=== PATIENT | male | born 1955 | race Caucasian/White ===

== ENCOUNTER 2017-01-25 20:56 | Emergency (ER) | payer OTHER ==
--- NOTE | ~2017-01-25 | CR72 ---
[facility] A Service of [facility] & [facility] RADIOLOGY TEXT RESULTS PATIENT: CAIO GORDON LOCATION: [facility] : 53 UNIT #: [id number] AGE: [address]: Jose Denise MD SEX: M ORDER DR: [id number] [facility] [address] [place], [place] [address] [id number] MR#: [id number] Acc #: [id number] NAME: CAIO GORDON : 1955 SEX: M STUDY DATE/TIME: 01/25/2017 19:59 UNIT: [facility] ROOM: STUDY DESCRIPTION: CR Chest Single View Portable Attending Physician: Jose Denise M.D. Ordering Physician: Kevin Hollingsworth M.D. Primary Care Physician: Bishop Verduzco M.D. MEDICAL IMAGING REPORT This report is preliminary unless electronic signature is present EXAM Portable chest, 01/25/2017 HISTORY Shortness of air, chest tightness onset today. History of valve repair. COMPARISON 09/15/2016 FINDINGS Portable view of the chest demonstrates pulmonary hyperinflation hyperlucency with coarse parenchymal markings suggesting underlying emphysema and fibrosis. Calcified granuloma right lung base. No acute airspace disease or consolidation. No effusions. Heart and mediastinum unremarkable except for postsurgical changes from previous valve repair. No pneumothorax. Dictated by... Sandi Ireland M.D. THIS IS AN ELECTRONICALLY VERIFIED REPORT Sandi Ireland M.D. at 01/26/2017 2:38 PM DAVID/darlene TD: 01/26/2017 01:30 JOB #: [id number] MEDICAL IMAGING REPORT Page 1 of 1 COPY
--- NOTE | ~2017-01-25 | EKG ---
PATIENT: CAIO GORDON UNIT #: [id number] Ventricular Rate: 123 BPM Atrial Rate: 123 BPM P-R Interval: 156 ms QRS Duration: 90 ms Q-T Interval: 322 ms QTC Calculation(Bezet): 460 ms P [place]: 72 degrees Calculated R [place]: 114 degrees Calculated T [place]: 61 degrees Diagnosis Line: Sinus tachycardia Diagnosis Line: Right axis deviation Diagnosis Line: Abnormal ECG Diagnosis Line: When compared with ECG of 05-APR-2016 05:43, Diagnosis Line: Sinus rhythm has replaced Atrial flutter Diagnosis Line: Vent. rate has increased BY 49 BPM Diagnosis Line: Questionable change in QRS axis Diagnosis Line: Nonspecific T wave abnormality no longer evident Diagnosis Line: in Anterolateral leads Diagnosis Line: Confirmed by JESSICA GARCIA MD ([id number]) on 01/29/2017 Diagnosis Line: 10:41:38 PM INTERPRETING MD: RADHA COELHO
--- NOTE | ~2017-01-25 | EKG ---
PATIENT: CAIO GORDON UNIT #: [id number] Ventricular Rate: 100 BPM Atrial Rate: 100 BPM P-R Interval: 162 ms QRS Duration: 102 ms Q-T Interval: 380 ms QTC Calculation(Bezet): 490 ms P [place]: 71 degrees Calculated R [place]: 89 degrees Calculated T [place]: 70 degrees Diagnosis Line: Normal sinus rhythm Diagnosis Line: Prolonged QT Diagnosis Line: Abnormal ECG Diagnosis Line: When compared with ECG of 25-JAN-2017 20:03, Diagnosis Line: (unconfirmed) Diagnosis Line: No significant change was found Diagnosis Line: Confirmed by JESSICA GARCIA MD ([id number]) on 01/29/2017 Diagnosis Line: 10:41:59 PM INTERPRETING MD: RADHA COELHO
[2017-01-25 20:18] LABS: POC - CKMB 4.2 ng/mL (0.0-7.9); POC - TROPONIN <0.05 ng/mL (<=0.05)
[2017-01-25 20:20] LABS: BASOPHIL% 0.1 % (0-2.5); HEMATOCRIT 47.9 % (38.0-50.0); HEMOGLOBIN 15.5 gm/dL (13.0-16.0); LYMPHOCYTE# 0.7 X10e3 (1.0-3.5); LYMPHOCYTE% 4.7 % (17.0-45.0); MEAN CELL VOLUME 92.8 FL (83-96); MEAN CORPUSCULAR HEMOGLOBIN 30.1 PG (28-34); MEAN CORPUSCULAR HGB CONC 32.4 g/dL (30-36); MEAN PLATELET VOLUME 9.6 FL (6.5-11.5); MONOCYTE# 0.8 X10e3 (0-1.0); MONOCYTE% 5.2 % (3.0-12.0); NEUTROPHIL# 13.4 X10e3 (1.5-7.1); PLATELET COUNT 113 X10e3 (140-420); RED BLOOD COUNT 5.16 X10e (3.90-5.60); RED CELL DISTRIBUTION WIDTH 15.8 % (11.0-15.5); WHITE BLOOD COUNT 14.9 X10e3 (4.0-10.5)
[2017-01-25 20:21] LABS: INFLUENZA A NEG (NEG); INFLUENZA B NEG (NEG)
[2017-01-25 20:21] LABS: DIFF IND NO
[~2017-01-25 20:56] MED LIST: ACETAMINOPHEN PO; AMIODARONE HCL400 MG PO; ASPIRIN81 M2 PO; BUMETANIDE1 MG PO; CAPOTEN12.5 MG PO; DIGOX0.125 MG PO; ELIQUIS5 MG PO; LORTAB 7.5-5001 TAB PO; LOVENOX SUBQ; NO MEDICATIONS; TOPROL XL 50 MG50 MG PO
[2017-01-25 20:57] LABS: ALBUMIN SERUM 4.9 g/dL (3.5-5.0); BILIRUBIN, DIRECT 1.3 mg/dL (0.0-0.2); BILIRUBIN,INDIRECT 2.5 mg/dL (0.0-0.9); BILIRUBIN,TOTAL 3.8 mg/dL (0.2-2.0); BUN/CREATININE RATIO 13.75; CALCIUM SERUM 9.3 mg/dL (8.4-10.2); CREATININE SERUM 0.8 mg/dL (0.6-1.4); GLOM FILT RATE Estimated 95.1 mL/min (>60); POTASSIUM 4.1 mmol/L (3.5-5.1); PROTEIN TOTAL SERUM 8.5 g/dL (6.0-8.3)
== END 2017-01-25 21:48 | disposition home or self-care (01) ==
LOC: CED 20:56
PROVIDERS: Emergency Medicine
DX: I45.81 Long QT syndrome (principal); Z91.14 Patient's other noncompliance with medication regimen; F17.200 Nicotine dependence, unspecified, uncomplicated
CPT/HCPCS: 36415; 71010; 80048; 80076; 82553; 84484; 85025; 87651; 87804; 93005; 99284; J3490

== ENCOUNTER 2017-06-18 23:42 | Inpatient (IN) | payer OTHER ==
[~2017-06-18] VITALS: Ht 180.3 cm; Wt 60.2 kg
--- NOTE | ~2017-06-18 | CO ---
Unit #: [id number] #: [id number] Patient: CAIO GORDON [id number] [address] [place], [place] [address] [id number] I MR#: [id number] NAME: CAIO GORDON ROOM: 471 Age: 62 Sex: M Admission Date: 06/19/2017 : 1955 Attending Physician: Nj Weinberg M.D. Primary Care Physician: Bishop Verduzco M.D. Consultation Date: 06/19/2017 CONSULTATION REPORT REASON FOR CONSULT Bleeding, on anticoagulation. HISTORY OF PRESENT ILLNESS The patient is a 62-year-old white male who is known to Dr. Rey with a history of having a cardiac cath in April 2016 with normal coronaries, a history of nonischemic cardiomyopathy with an EF of 16% in April of 2016 but repeat echo in June 2016 shows EF of 50%, hypertension, an OH in 2016 that is subjective, history of A-fib/flutter, now in sinus rhythm, daily alcohol abuse with one pint of vodka daily, anxiety and tobacco abuse, one pack per day smoker for 40 years. The patient came to the emergency room with complaints of rectal bleeding after a bowel movement around 10:45 p.m. last evening. 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 However, last night was more than he was used to. The patient denied any kind of dark tarry stools or brown emesis. He also denied any shortness of breath, palpitations, lightheadedness, chest pain, pressure or tightness, nausea, vomiting, fevers, chills. The patient had a cardiac cath in April 2016 that showed normal coronaries with an EF of 15% at that time. Patient was placed with a LifeVest and placed on appropriate medications with repeat JOSHUA in June 2016 showing an EF of 50%, mild concentric LVH and mild TR. Patient had LifeVest discontinued 05/26 of this year due to improved EF. Patient has been on Lopressor twice a day as well as Eliquis and aspirin at home. PAST MEDICAL HISTORY 1. Cardiac cath 04/05/16. Normal coronaries with an EF of 15%. 2. JOSHUA 04/2016 showed an EF of 16% with repeat JOSHUA in 06/2016 with an EF of 50%, mild concentric LVH, mild TR. 3. Hypertension. 4. Subjective OH in 2016. 5. History of A-fib/flutter, now in sinus rhythm. Patient was on amiodarone for awhile. However, that was stopped and patient has maintained sinus rhythm on beta kristine alone. 6. Daily alcohol abuse with one pint of vodka daily. 7. Anxiety. 8. Tobacco abuse, one pack per day smoker for 40 years. SURGICAL HISTORY Includes carpal tunnel surgery and left ankle surgery. SOCIAL HISTORY The patient is a pack per day smoker for the last 40 years. He also Unit #: [id number] #: [id number] Patient: CAIO GORDON drinks one pint of vodka daily. His last drink was last evening. Patient has sustained from alcohol in the past for a total of five years. He states that he did experience withdrawal symptoms at that time. FAMILY HISTORY Patient does not know all the details of his family history. However, he states he does have some family history of cardiac problems. ALLERGIES No known allergies. HOME MEDICATIONS 1. Tylenol 650 p.o. every six hours as needed for pain. 2. Eliquis 5 mg p.o. twice a day. 3. Captopril 12.5 mg p.o. three times a day. 4. Metoprolol tartrate 50 mg p.o. daily. 5. Aspirin 81 mg p.o. daily. 6. Chantix. 7. Bumex 1 mg p.o. daily. REVIEW OF SYSTEMS Ten point review of systems negative except for what is listed above in the HPI. PHYSICAL EXAMINATION GENERAL: This is a 62-year-old white male who is alert and oriented x3, in no apparent distress. VITAL SIGNS: Blood pressure 95/72, temp 97.8, pulse 98, respirations 16. HEENT: Pupils equal, round and reactive. Oral mucosa is moist. NECK: No JVD, no thyromegaly, no lymphadenopathy, no carotid bruits. HEART: S1, S2. No S3 or S4. No clicks, no rubs, no murmurs. LUNGS: Clear. ABDOMEN: Soft. Bowel sounds positive. Nontender, nondistended. EXTREMITIES: No swelling. NEUROLOGICAL: No deficits noted. DIAGNOSTIC STUDIES LABORATORY: Sodium 137, potassium 3.5, chloride 102, CO2 23, glucose 95, BUN 9, creatinine 0.7, GFR 99.8, white blood cells 7.6, hemoglobin 13.5, hematocrit 39.4, platelets are 176. CARDIOVASCULAR: EKG showed sinus rhythm with a rate of 83 with slow R wave progression. IMPRESSION 1. Rectal bleeding. 2. History of A-fib/flutter last year, now in sinus rhythm, maintained on beta kristine. 3. Daily ETOH. 4. Hypertension. 5. Tobacco abuse. 6. LVEF 50% as of June 2016 with a history of nonischemic cardiomyopathy with possibly stress-induced versus alcohol related but is improved on appropriate medications. PLAN Patient is on Toprol. Will hold parameters to hold if systolic less than 100 or heart rate less than 60. For now, Eliquis and aspirin are held due Unit #: [id number] #: [id number] Patient: CAIO GORDON to bleeding. Surgery is planning to do EGD tomorrow to workup the bleeding. Patient likely okay to undergo EGD. Will discuss with Dr. Driver who will also review the patient. Further recommendations pending his review of the patient's records. Dictated by... Reta Villasenor APRN for Gustavo Piper TD: 06/19/2017 11:43 JOB #: [id number] CONSULTATION REPORT Page 1 of 1 X X CONSULTATION REPORT
--- NOTE | ~2017-06-18 | DS ---
Unit #: [id number] #: [id number] Patient: CAIO GORDON [id number] [address] [place], [place] [address] [id number] I MR#: [id number] NAME: CAIO GORDON ROOM: 471 Age: 62 Sex: M Admission Date: 06/19/2017 : 1955 Discharge Date: 06/22/2017 Attending Physician: Nj Weinberg M.D. Primary Care Physician: iBshop Verduzco M.D. DISCHARGE SUMMARY PERTINENT HISTORY AND HOSPITAL COURSE The patient is a 62-year-old man with a history significant for nonischemic cardiomyopathy, status post mitral valve repair, paroxysmal atrial fibrillation, on chronic anticoagulation with Eliquis who presents with bright red blood per rectum. The patient underwent colonoscopy to the cecum, which demonstrated a rectal mass. Multiple biopsies were taken of the mobile neoplasm. Pathology of the fragments demonstrated fragmented superficial fragments of a tubulovillous adenoma. The patient also underwent endoscopy with biopsy for H. pylori, which was urease positive. During his admission he did not have a recurrence of rectal bleeding. The patient also has a history of alcohol abuse and the patient was on CIWA protocol during his admission. Psychiatry was consulted and he will followup with [facility] as an outpatient. Cardiology was also consulted for his history of nonischemic cardiomyopathy. DISCHARGE DIAGNOSES 1. Rectal mass, tubulovillous adenoma. 2. Helicobacter pylori. 3. Nonischemic cardiomyopathy. 4. Paroxysmal atrial fibrillation on anticoagulation with Eliquis. 5. Alcohol abuse and dependence. DISCHARGE INSTRUCTIONS 1. The patient will followup with [facility] as an outpatient. 2. Followup with [facility] for excision of rectal mass if patient is agreeable. 3. He is to continue his anticoagulation with Eliquis and stop the Eliquis 24 hours prior to surgery. 4. Followup with cardiology as an outpatient. 5. Followup with primary care physician. DISCHARGE MEDICATIONS 1. Eliquis 5 mg p.o. twice daily. 2. Calodo Bismuth 524 mg p.o. twice daily. 3. NicoDerm transdermal patch 21 mg, change daily. 4. Librium 25 mg p.o. b.i.d. 5. Captopril 4.5 mg p.o. t.i.d. 6. Metoprolol 50 mg p.o. daily. 7. Erythromycin 500 mg p.o. twice daily. 8. Metronidazole 500 mg p.o. twice daily. 9. Multivitamin tab 1 p.o. daily. 10. Aspirin 81 mg p.o. daily. 11. Protonix 40 mg p.o. daily. 12. Remeron 15 mg p.o. q.h.s. Unit #: [id number] #: [id number] Patient: CAIO GORDON 1. Dictated by... Gustavo Shields TD: 06/25/2017 10:56 JOB #: [id number] DISCHARGE SUMMARY Page 1 of 1 X X DISCHARGE SUMMARY
--- NOTE | ~2017-06-18 | OR ---
Unit #: [id number] #: [id number] Patient: CAIO GORDON [id number] [address] [place], [place] [address] [id number] I MR#: [id number] NAME: CAIO GORDON ROOM: 471 Date of Procedure: 06/20/2017 Admission Date: 06/19/2017 Surgeon: Thony Echols M.D. : 1955 Attending Physician: Nj Weinberg M.D. Primary Care Physician: Bishop Verduzco M.D. OPERATIVE REPORT JOB NOTE: CC: [facility]. PREOPERATIVE DIAGNOSIS Rectal bleeding. POSTOPERATIVE DIAGNOSIS Rectal bleeding. PROCEDURES PERFORMED 1. Esophagogastroduodenoscopy. 2. Biopsy of antrum for Helicobacter pylori testing. 3. Colonoscopy to cecum. 4. Multiple biopsies of rectal lesion at 7 cm. ANESTHESIA Monitored anesthesia care. FINDINGS The patient was found to have a hiatal hernia and mild gastritis. On colonoscopy, the patient was found to have mobile neoplasm at 7 cm with a wide base suspicious for being a carcinoma. SPECIMENS Sent to Pathology. COMPLICATIONS None apparent. CONDITION The patient tolerated the procedure well. INDICATIONS FOR PROCEDURE The patient is a 62-year-old white male, who has never had a colonoscopy. He has had intermittent rectal bleeding and the feeling of a mass prolapsing through his rectum. He presents at this time for evaluation by upper and lower endoscopy. DESCRIPTION OF PROCEDURE After obtaining informed consent, the patient was brought to the endoscopy suite and after adequate monitored anesthesia care, had the endoscope placed through the mouth into the upper esophagus under direct vision. It was advanced to the second portion of the duodenum without difficulty with Unit #: [id number] #: [id number] Patient: CAIO GORDON the lumen always in view. The second and third portion of the duodenum were normal as was the duodenal bulb. The pylorus opened normally. There was some mild distal gastritis present and a biopsy was obtained for Helicobacter pylori testing. On retroflexing back to the GE junction, the patient was found to have a medium-sized hiatal hernia. No other abnormalities were found in the proximal third, middle third, or incisura. On pulling back above the GE junction, there was no stenosis, stricture, or neoplasm seen. There was no significant esophagitis. The remaining portion of the esophagus was within normal limits. Laryngeal structures were grossly normal as viewed from above. At this point in time, the colonoscope was placed through the anus and slowly advanced to the level of cecum without difficulty with lumen always in view. The cecum was normal as was the ileocecal valve. The ascending colon was normal as was the hepatic flexure, transverse colon, splenic flexure, descending colon, sigmoid colon, and upper rectum. At 7 cm, on the first rectal fold, the patient was found to have a neoplasm suspicious for being a carcinoma. It is mobile, but had a wide base. Multiple biopsies were obtained. There was good hemostasis. On retroflexing to the anorectal junction, the patient was found to have some mild internal hemorrhoids and the most distal portion of the lesion could still be seen. The scope was removed without difficulty. On digital examination, there was good sphincter tone. Again, the lesion could be felt and was very mobile, but had a wide base. The patient went from the endoscopy suite to recovery room in stable condition. RECOMMENDATIONS Clear liquid diet. Do not advance. Resume preop orders and medications. CEA level. We will await pathology. If benign, the patient will need transanal excision of the lesion. If malignant, the patient may need a very low anterior resection versus a possible abdominoperineal resection. Dictated by... Gustavo Phillips/lluvia TD: 06/20/2017 13:16 JOB #: [id number] CC: [facility] OPERATIVE REPORT Page 1 of 1 X Thony Echols MD X PROCEDURE OPERATIVE NOTE
--- NOTE | ~2017-06-18 | CO ---
Unit #: [id number] #: [id number] Patient: CAIO GORDON [id number] [facility] [address] [place], [place] [address] [id number] MR#: [id number] NAME: CAIO GORDON ROOM: 471 Age: 62 Sex: M Admission Date: 06/19/2017 : 1955 Attending Physician: Nj Weinberg M.D. Primary Care Physician: Bishop Verduzco M.D. Consultation Date: 06/22/2017 CONSULTATION REPORT REASON FOR CONSULTATION Alcohol abuse. HISTORY OF PRESENT ILLNESS Mr. Leija is a 62-year-old male, seen on 06/22/2017 at [facility] in room 471, bed 1. The patient was admitted with rectal bleed on 06/19/2017. The patient reported history of alcohol abuse, drinking heavily, relapsed recently. The patient reported drinking 2 pints a day. The patient reported feeling sad, depressed, and anxious, but denied any suicidal or homicidal ideation. Denied any psychotic symptom. The patient's vital signs; temperature 97.8, pulse 67, respirations 18, blood pressure 102/69, oxygen saturations 100%. PAST PSYCHIATRIC HISTORY Remarkable for history of alcohol abuse. No history of any previous treatment or any suicide attempt. MEDICAL HISTORY History of nonischemic cardiomyopathy; ascending aortic aneurysm measuring 4.1 cm; COPD; paroxysmal atrial fibrillation, on Eliquis; right carpal tunnel release; left ankle surgery. ALLERGIES No known drug allergies. MEDICATIONS The patient is on Eliquis, metoprolol, Bumex, aspirin, captopril. FAMILY HISTORY AND SOCIAL HISTORY The patient has a poor support system. No history of abuse. History of alcohol abuse. REVIEW OF SYSTEMS Complete review of systems unremarkable except as mentioned above. MENTAL STATUS EXAMINATION General appearance; the patient dressed casually, lying comfortably in bed. Attention span and concentration fair. Speech; regular rate and coherent. Oriented in time, place, and person. Mood and affect, labile. Thought process, coherent. Thought content, the patient denied any thoughts of harming self or others. Denied any hallucination. Recent and remote memory, fair. Language, intact. Fund of knowledge, fair. Insight and judgment, fair to slightly impaired. Unit #: [id number] #: [id number] Patient: CAIO GORDON DIAGNOSES Psychiatric: Alcohol use disorder, severe, F10.20; mood disorder, not otherwise specified, F32.9. Secondary diagnosis: Deferred. Medical diagnosis: Please refer to H and P. Stressors: Psychosocial stressors. ASSESSMENT AND PLAN 1. Supportive psychotherapy and psychoeducation provided to the patient. 2. Educated about benefits and side effects of medication and course and prognosis of illness. 3. The patient was given [facility] program of [facility] and advised to follow up in that program, given telephone #[phone]. Please feel free to call if any questions, telephone #[phone]. Dictated by... Gustavo Ricci/lluvia TD: 06/23/2017 17:48 JOB #: [id number] CONSULTATION REPORT Page 1 of 1 X Benny Banegas MD X CONSULTATION REPORT
--- NOTE | ~2017-06-18 | HP ---
Unit #: [id number] #: [id number] Patient: CAIO GORDON [id number] [address] [address] [id number] MR#: [id number] NAME: CAIO GORDON ROOM: 471 Age: 62 Sex: M Admission Date: 06/19/2017 : 1955 Attending Physician: Luzma Willingham M.D. Primary Care Physician: Bishop Verduzco M.D. HISTORY AND PHYSICAL CHIEF COMPLAINT Lower GI bleed while anticoagulated. HISTORY This 62-year-old male with a nonischemic cardiomyopathy, status post mitral valve repair, paroxysmal atrial fibrillation, is admitted for rectal bleeding. The patient takes Eliquis for paroxysmal atrial fibrillation. Notes occasional episodes of bright red blood per rectum separate from the stool. However, last evening developed a large amount of rectal bleeding. This occurred after attempting to have a bowel movement. When he presented to this emergency department late last evening, his vital signs were stable. On examination per the ER physician, the patient had a rectal prolapse with very abnormal appearing rectal mucosa. Apparently there was possibly a necrotic area, and the tissue was quite friable. The prolapse was reduced by the ER physician. PAST MEDICAL HISTORY 1. Nonischemic cardiomyopathy, ejection fraction 15% with moderate to severe MR on echo 03/2016. Patient underwent mitral valve annuloplasty band at a hospital in [place] 08/2016. 2. Ascending aortic aneurysm measuring about 4.1 cm. 3. COPD. 4. Paroxysmal atrial fibrillation, on Eliquis. 5. Right carpal tunnel release. 6. Left ankle surgery. ALLERGIES No known drug allergies. HOME MEDICATIONS 1. Eliquis 5 mg b.i.d. Last dose yesterday morning. 2. Metoprolol 50 mg daily. 3. Bumex 1 mg daily. 4. Aspirin 81 mg daily. 5. Captopril 25 mg, one half tablet t.i.d. FAMILY HISTORY Lung cancer, ETOH. SOCIAL HISTORY The patient lives alone. He smokes one pack per day of tobacco. Drinks one pint of alcohol daily. Unit #: [id number] #: [id number] Patient: CAIO GORDON REVIEW OF SYSTEMS Notable for rectal bleeding, atrial fibrillation, COPD, tobacco and alcohol abuse, nonischemic cardiomyopathy, mitral valve repair, above mentioned surgeries. All other systems were reviewed and otherwise negative. PHYSICAL EXAMINATION GENERAL APPEARANCE: Pleasant, thin, 62-year-old male, currently in no acute distress. VITAL SIGNS: Temperature 98.1, pulse 95, respirations 15, blood pressure 122/83. O2 saturation is 95% on room air. HEENT: Eyes PERRLA. Extraocular muscles are intact. Pharynx is benign. NECK: Supple without adenopathy or thyromegaly. CHEST: Clear. CARDIAC: Normal S1 and S2 with a loud systolic murmur best heard at the apex. ABDOMEN: Bowel sounds are present. No hepatosplenomegaly, tenderness or masses. RECTAL EXAMINATION: On my examination, the prolapse was reduced, and externally the rectum looked normal. Again, however, per the ER physician, when the rectum was prolapsed, there was abnormal rectal mucosa and a necrotic appearing area as well. EXTREMITIES: Without C, C or E. Pedal pulses are present. NEUROLOGIC EXAM: The patient is awake, alert, oriented. Cranial nerves are intact. Equal strength throughout. DIAGNOSTIC STUDIES LABORATORY: Admission labs - hematocrit is 43.8, normal white count, platelet count and MCV. Coags are normal. SMA-7 - sodium 134, potassium 3.4, chloride is 99. ASSESSMENT 1. Rectal bleeding, on Eliquis, with abnormal rectal examination per the ER physician. Please see above. 2. Paroxysmal atrial fibrillation, currently in a normal sinus rhythm. 3. Nonischemic cardiomyopathy, ejection fraction 15%, status post mitral valve repair. 4. Alcohol abuse. PLANS 1. Hold aspirin and Eliquis. 2. Benzos and vitamins. 3. SCDs for DVT prophylaxis. 4. Serial H and H. 5. Surgical consultation. 6. Cardiology to follow. Will obtain an EKG. 7. Check LFTs. 8. Hold Bumex while actively bleeding. Dictated by Luzma Willingham M.D. AML/df Unit #: [id number] #: [id number] Patient: CAIO GORDON TD: 06/19/2017 05:20 JOB #: [id number] HISTORY AND PHYSICAL Page 1 of 1 X Luzma Willingham MD X HISTORY AND PHYSICAL
--- NOTE | ~2017-06-18 | CO ---
Unit #: [id number] #: [id number] Patient: CAIO GORDON [id number] [address] [address] [id number] MR#: [id number] NAME: CAIO GORDON ROOM: 471 Age: 62 Sex: M Admission Date: 06/19/2017 : 1955 Attending Physician: Nj Weinberg M.D. Primary Care Physician: Bishop Verduzco M.D. Requesting Physician: Luzma Willingham M.D. Consultation Date: 06/19/2017 CONSULTATION REPORT REASON FOR CONSULTATION Rectal bleeding. HISTORY OF PRESENT ILLNESS Thank you very much for asking us to see Mr. Gordon. He is a 62-year-old white male who presented with a 24-hour history of bright red blood per rectum. He also felt as if there was some prolapsing of his anus and rectum. He never had this before. He has never had a colonoscopy. He has no abdominal pain. His weight is stable and his appetite is good. He has no rectal pain. He presents at this time for further evaluation and treatment. PAST MEDICAL HISTORY 1. Heart disease. 2. Congestive heart failure. 3. Pulmonary problems. PAST SURGICAL HISTORY 1. Carpal tunnel. 2. Left ankle surgery. 3. Heart valve replacement. SOCIAL HISTORY Positive for alcohol use. Positive for tobacco use. IMMUNIZATION STATUS Unknown. FAMILY HISTORY Noncontributory. ALLERGIES No known drug allergies. CURRENT MEDICATIONS 1. Metoprolol. 2. Bumex. 3. Captopril. 4. Eliquis. REVIEW OF SYSTEMS Negative except for the above. PHYSICAL EXAMINATION Unit #: [id number] #: [id number] Patient: CAIO GORDON GENERAL: Well-developed, well-nourished white male in no apparent distress. VITALS: Afebrile. Vital signs stable. HEENT: Sclerae nonicteric. Extraocular movements are intact. NECK: Supple. No thyromegaly or adenopathy. BACK: No CVA or spinous tenderness. ABDOMEN: Flat, soft and nontender. EXTREMITIES: No calf tenderness. RECTAL: Good sphincter tone. No masses palpable. No external evidence of abnormality. On digital examination no masses palpable. Trace bright red blood, mostly brown stool. DIAGNOSTIC STUDIES LABORATORY: Urinalysis has negative nitrates, negative leukocyte esterase. White count on admission is 7.6, hemoglobin 13.5, hematocrit 39.4. PT is 10.9, PTT 28.7. CMP overall is normal. ASSESSMENT/PLAN 62-year-old male with bright red blood per rectum. He is on Eliquis and has had heart valve surgery. We will have cardiology see the patient to evaluate his anticoagulation and heart valve prophylaxis. He needs to be prepped later today for EGD and colonoscopy tomorrow. That way he can be off his Eliquis for 24-48 hours. All of the risks and benefits of upper and lower endoscopy have been fully explained to the patient in detail, including the risks of bleeding, perforation, emergency surgery, chance for , additional surgery and other risks. He understands and requests that we proceed. Dictated by... Thony Echols M.D. JPG/gz TD: 06/19/2017 10:30 JOB #: [id number] CC: [facility] Gustavo Oconnell M.D. Matthew Bessen, M.D. CONSULTATION REPORT Page 1 of 1 X Thony Echols MD CONSULTATION REPORT
--- NOTE | ~2017-06-18 | EKG ---
PATIENT: CAIO GORDON UNIT #: [id number] Ventricular Rate: 83 BPM Atrial Rate: 83 BPM P-R Interval: 164 ms QRS Duration: 100 ms Q-T Interval: 396 ms QTC Calculation(Bezet): 465 ms P Reading: 76 degrees Calculated R Reading: -105 degrees Calculated T Reading: 88 degrees Diagnosis Line: Normal sinus rhythm Diagnosis Line: Right superior axis deviation Diagnosis Line: Incomplete right bundle branch block Diagnosis Line: Possible Right ventricular hypertrophy Diagnosis Line: Abnormal ECG Diagnosis Line: When compared with ECG of 19-JUN-2017 02:54, Diagnosis Line: (unconfirmed) Diagnosis Line: No significant change was found Diagnosis Line: Confirmed by BRODY ROCK MD ([id number]) on Diagnosis Line: 06/19/2017 3:28:39 PM INTERPRETING MD: SHARON
[2017-06-19 01:03] LABS: BASOPHIL% 0.5 % (0-2.5); EOSINOPHIL% 0.3 % (0.0-7.0); HEMATOCRIT 43.8 % (38.0-50.0); HEMOGLOBIN 14.8 gm/dL (13.0-16.0); LYMPHOCYTE% 25.8 % (17.0-45.0); MEAN CELL VOLUME 93.2 FL (83-96); MEAN CORPUSCULAR HEMOGLOBIN 31.6 PG (28-34); MEAN CORPUSCULAR HGB CONC 33.9 g/dL (30-36); MEAN PLATELET VOLUME 8.3 FL (6.5-11.5); MONOCYTE# 0.5 X10e3 (0-1.0); MONOCYTE% 6.4 % (3.0-12.0); NEUTROPHIL# 5.2 X10e3 (1.5-7.1); PLATELET COUNT 207 X10e3 (140-420); RED BLOOD COUNT 4.69 X10e (3.90-5.60); RED CELL DISTRIBUTION WIDTH 13.7 % (11.0-15.5); WHITE BLOOD COUNT 7.8 X10e3 (4.0-10.5)
[2017-06-19 01:08] LABS: DIFF IND NO
[2017-06-19 01:17] LABS: PARTIAL THROMBOPLASTIN TIME 28.7 SECONDS (23.5-31.3); PROTHROMBIN TIME (PATIENT) 10.9 SECONDS (10.0-11.7)
[2017-06-19 01:31] LABS: BUN/CREATININE RATIO 13.75; CALCIUM SERUM 8.6 mg/dL (8.4-10.2); CREATININE SERUM 0.8 mg/dL (0.6-1.4); GLOM FILT RATE Estimated 94.4 mL/min (>60); POTASSIUM 3.4 mmol/L (3.5-5.1)
[2017-06-19 05:00] LABS: HEMATOCRIT 39.4 % (38.0-50.0); HEMOGLOBIN 13.5 gm/dL (13.0-16.0); MEAN CELL VOLUME 92.3 FL (83-96); MEAN CORPUSCULAR HEMOGLOBIN 31.7 PG (28-34); MEAN CORPUSCULAR HGB CONC 34.4 g/dL (30-36); MEAN PLATELET VOLUME 7.9 FL (6.5-11.5); RED BLOOD COUNT 4.27 X10e (3.90-5.60); RED CELL DISTRIBUTION WIDTH 13.6 % (11.0-15.5); WHITE BLOOD COUNT 7.6 X10e3 (4.0-10.5)
[2017-06-19 05:47] LABS: ALBUMIN SERUM 3.6 g/dL (3.5-5.0); BILIRUBIN,TOTAL 1.3 mg/dL (0.2-2.0); BUN/CREATININE RATIO 12.85; CALCIUM SERUM 8.6 mg/dL (8.4-10.2); CREATININE SERUM 0.7 mg/dL (0.6-1.4); GLOM FILT RATE Estimated 99.8 mL/min (>60); POTASSIUM 3.5 mmol/L (3.5-5.1); PROTEIN TOTAL SERUM 6.3 g/dL (6.0-8.3)
[2017-06-19 10:24] LABS: HEMATOCRIT 39.2 % (38.0-50.0); HEMOGLOBIN 13.3 gm/dL (13.0-16.0)
[2017-06-19 16:51] LABS: HEMATOCRIT 40.8 % (38.0-50.0)
[2017-06-20 04:12] LABS: HEMATOCRIT 39.1 % (38.0-50.0); HEMOGLOBIN 13.1 gm/dL (13.0-16.0); MEAN CELL VOLUME 93.5 FL (83-96); MEAN CORPUSCULAR HEMOGLOBIN 31.3 PG (28-34); MEAN CORPUSCULAR HGB CONC 33.5 g/dL (30-36); MEAN PLATELET VOLUME 8.5 FL (6.5-11.5); RED BLOOD COUNT 4.19 X10e (3.90-5.60); RED CELL DISTRIBUTION WIDTH 13.7 % (11.0-15.5); WHITE BLOOD COUNT 8.1 X10e3 (4.0-10.5)
[2017-06-20 04:42] LABS: BUN/CREATININE RATIO 11.66; CALCIUM SERUM 8.6 mg/dL (8.4-10.2); CREATININE SERUM 0.6 mg/dL (0.6-1.4); GLOM FILT RATE Estimated 106.3 mL/min (>60); MAGNESIUM 1.3 mg/dL (1.6-3.0); POTASSIUM 3.4 mmol/L (3.5-5.1)
[2017-06-21 05:05] LABS: HEMATOCRIT 40.3 % (38.0-50.0); HEMOGLOBIN 13.4 gm/dL (13.0-16.0); MEAN CELL VOLUME 93.9 FL (83-96); MEAN CORPUSCULAR HEMOGLOBIN 31.3 PG (28-34); MEAN CORPUSCULAR HGB CONC 33.3 g/dL (30-36); MEAN PLATELET VOLUME 9.1 FL (6.5-11.5); RED BLOOD COUNT 4.29 X10e (3.90-5.60); RED CELL DISTRIBUTION WIDTH 13.3 % (11.0-15.5); WHITE BLOOD COUNT 8.7 X10e3 (4.0-10.5)
[2017-06-21 06:52] LABS: BUN/CREATININE RATIO 6.25; CALCIUM SERUM 8.8 mg/dL (8.4-10.2); CREATININE SERUM 0.8 mg/dL (0.6-1.4); GLOM FILT RATE Estimated 94.4 mL/min (>60); MAGNESIUM 1.7 mg/dL (1.6-3.0); POTASSIUM 3.7 mmol/L (3.5-5.1)
[2017-06-22 03:57] LABS: BASOPHIL% 0.4 % (0-2.5); EOSINOPHIL# 0.1 X10e3 (0-0.7); EOSINOPHIL% 1.8 % (0.0-7.0); HEMATOCRIT 38.4 % (38.0-50.0); HEMOGLOBIN 13.2 gm/dL (13.0-16.0); LYMPHOCYTE# 2.2 X10e3 (1.0-3.5); LYMPHOCYTE% 31.7 % (17.0-45.0); MEAN CELL VOLUME 93.4 FL (83-96); MEAN CORPUSCULAR HGB CONC 34.3 g/dL (30-36); MEAN PLATELET VOLUME 8.9 FL (6.5-11.5); MONOCYTE# 0.4 X10e3 (0-1.0); MONOCYTE% 5.6 % (3.0-12.0); NEUTROPHIL# 4.2 X10e3 (1.5-7.1); NEUTROPHIL% 60.5 % (40-75); PLATELET COUNT 106 X10e3 (140-420); RED BLOOD COUNT 4.12 X10e (3.90-5.60); RED CELL DISTRIBUTION WIDTH 13.4 % (11.0-15.5)
[2017-06-22 04:09] LABS: DIFF IND NO
[2017-06-22 04:19] LABS: BLOOD UREA NITROGEN <5 mg/dL (9-23); CALCIUM SERUM 8.6 mg/dL (8.4-10.2); CARBON DIOXIDE 23 mmol/L (22-31); CHLORIDE 109 mmol/L (100-111); CREATININE SERUM 0.5 mg/dL (0.6-1.4); GLOM FILT RATE Estimated 114.6 mL/min (>60); GLUCOSE FASTING 81 mg/dL (70-110); MAGNESIUM 1.7 mg/dL (1.6-3.0); POTASSIUM 3.6 mmol/L (3.5-5.1); SODIUM 141 mmol/L (135-145)
[2017-06-22] MEDS ORDERED: CLARITHROMYCIN500 MG PO (15:27)
[2017-06-22] MEDS ORDERED: FLAGYL PO ×2 (15:28→15:29)
[2017-06-22] MEDS ORDERED: NICOTINE PATCH1 EAC1 TD (15:34)
[2017-06-22] MEDS ORDERED: PROTONIX PO (15:36)
[2017-06-22] MEDS ORDERED: PEPTO-BISMOL262 M1 PO (15:38)
[2017-06-22] MEDS ORDERED: REMERON15 MG PO (15:42)
[2017-06-22] MEDS ORDERED: LIBRIUM25 MG PO (15:52)
== END 2017-06-22 18:03 | disposition home or self-care (01) | DRG 378 ==
LOC: CED 23:42 → C4C 06-19 02:10 → CEDOF 06-19 02:10 → C4C 06-19 02:30 → CEDOF 06-19 03:46 → C4C 06-19 03:46
PROVIDERS: Emergency Medicine; Internal Medicine; Surgery
PROC: 0DB78ZX Excision of Stomach, Pylorus, Via Natural or Artificial Opening Endoscopic, Diagnostic (ICD-10-PCS; principal; 2017-06-20 08:30)
PROC: 0DBP8ZX Excision of Rectum, Via Natural or Artificial Opening Endoscopic, Diagnostic (ICD-10-PCS; 2017-06-20 08:30)
DX: K62.5 Hemorrhage of anus and rectum (principal); I42.8 Other cardiomyopathies; D12.8 Benign neoplasm of rectum; F41.9 Anxiety disorder, unspecified; F10.20 Alcohol dependence, uncomplicated; F17.200 Nicotine dependence, unspecified, uncomplicated; I10 Essential (primary) hypertension; Z79.01 Long term (current) use of anticoagulants; I48.0 Paroxysmal atrial fibrillation; B96.81 Helicobacter pylori [H. pylori] as the cause of diseases classified elsewhere; I71.4 Abdominal aortic aneurysm, without rupture; K44.9 Diaphragmatic hernia without obstruction or gangrene; K29.70 Gastritis, unspecified, without bleeding; K64.8 Other hemorrhoids; G47.00 Insomnia, unspecified
CPT/HCPCS: 36415; 80048; 80053; 82378; 83735; 85014; 85018; 85025; 85027; 85610; 85730; 86850; 86900; 86901; 87077; 88305; 93005; 94762; 99284; J2250; J3475